=== PATIENT | female | born 1940 | race Caucasian/White ===

== ENCOUNTER 2017-11-22 10:10 | Emergency (ER) | payer MEDICARE, OTHER ==
[~2017-11-22] VITALS: Ht 152.4 cm; Wt 49.9 kg
[2017-11-22] MEDS ORDERED: ONDANSETRON HCL INJ 2 MG/ML VIAL IV STA ×2 (10:31→17:33)
[2017-11-22] MEDS ORDERED: SODIUM CHLORIDE 0.9% 1000ML 1,000 ML IV STA (10:31)
[2017-11-22] MEDS ORDERED: KETOROLAC TROMETHAMINE 30 MG/ML VIAL IV STA (10:37)
--- NOTE | 2017-11-22 11:31 | Diagnostic Imaging Report ---
PROCEDURE: A single AP view of the chest. COMPARISON: None. INDICATIONS: DIARRHEA FINDINGS: Lines/tubes: None. Lungs: Emphysema with basilar scarring Pleura: There is no pleural effusion or pneumothorax. Heart and mediastinum: Normal heart size. Surgical clips projected over the left upper mediastinum. Bones: No acute bony abnormality. 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 IMPRESSION: Emphysema. No evidence of infection or pulmonary edema. Dictated by: Tu Carrillo M.D. on 11/22/2017 at 11:39 Electronically approved by: Tu Carrillo M.D. on 11/22/2017 at 11:39
[2017-11-22 11:33] LABS: BILIRUBIN,URINE NEGATIVE (NEGATIVE); KETONES,URINE 1+ (NEGATIVE); LEUKOCYTE ESTERASE ,URINE NEGATIVE (NEGATIVE); NITRITE,URINE NEGATIVE (NEGATIVE); PROTEIN,URINE DIPSTICK NEGATIVE (NEGATIVE); URINE UROBILINOGEN 0.2 mg/dL (0.2 - 1)
[2017-11-22 12:18] LABS: AMORPHOUS SEDIMENT,URINE MODERATE (FEW); CLARITY,URINE HAZY (CLEAR); COLOR,URINE YELLOW (YELLOW); EPITHELIAL CELLS,URINE MANY /LPF; RBC,URINE 0-5 /HPF (0-5)
[2017-11-22 12:35] LABS: BASOPHILS # (AUTO) 0.1 (0.0-0.1); BASOPHILS % 0.9 % (0.0-1.0); EOSINOPHILS % 0.6 % (0.0-6.0); HEMATOCRIT 50.3 % (34.2-44.1); LYMPHOCYTES # (AUTO) 0.7 (1.0-3.2); LYMPHOCYTES % 12.9 % (18.0-39.1); MEAN CORPUSCULAR HEMOGLOBIN 31.4 pg (28-32); MEAN CORPUSCULAR HGB CONC 33.8 g/dL (31-35); MONOCYTES # (AUTO) 0.6 (0.2-0.8); MONOCYTES % 10.5 % (4.4-11.3); NEUTROPHILS # (AUTO) 4.1 (2.1-6.9); NEUTROPHILS % 74.5 % (38.7-80.0); PLATELET COUNT 247 x10e3/uL (140-360); RED BLOOD COUNT 5.41 x10e6/uL (3.6-5.1); RED CELL DISTRIBUTION WIDTH 13.2 % (11.7-14.4)
[2017-11-22 12:53] LABS: ALANINE AMINOTRANSFERASE 19 IU/L (0-55); ALBUMIN/GLOBULIN RATIO 1.1 (0.8-2.0); ALKALINE PHOSPHATASE 73 IU/L (40-150); ANION GAP 17.3 mmol/L (8-16); BLOOD UREA NITROGEN 12 mg/dL (7-26); BUN/CREATININE RATIO 15 (6-25); CALCIUM 9.6 mg/dL (8.4-10.2); CARBON DIOXIDE 21 mmol/L (22-29); CHLORIDE 105 mmol/L (98-107); CREATININE, SERUM 0.79 mg/dL (0.57-1.11); EST GLOMERULAR FILTRATION RATE > 60 ML/MIN (60-); GLUCOSE 89 mg/dL (74-118); POTASSIUM 4.3 mmol/L (3.5-5.1); SODIUM 139 mmol/L (136-145)
--- NOTE | 2017-11-22 16:04 | Diagnostic Imaging Report ---
PROCEDURE: CT ABDOMEN AND PELVIS WITHOUT CONTRAST TECHNIQUE: The abdomen and pelvis were scanned utilizing a multidetector helical scanner from the diaphragm to the lesser trochanter after the oral administration of Redicat. No IV contrast was administered. Coronal and sagittal multiplanar reformations were obtained. COMPARISON: None. INDICATIONS: ABDOMINAL PAIN, DIARRHEA FINDINGS: ABSENCE OF INTRAVENOUS CONTRAST DECREASES SENSITIVITY FOR DETECTION OF FOCAL LESIONS AND VASCULAR PATHOLOGY. LOWER THORAX: Subsegmental atelectasis and scarlike opacities in the lung bases. HEPATOBILIARY: No focal hepatic lesions. The common bile duct is mildly dilated, measuring up to 0.8 cm. SPLEEN: No splenomegaly. PANCREAS: No focal masses or ductal dilatation. ADRENALS: No adrenal nodules. KIDNEYS/URETERS: No hydronephrosis or stones. There is a 1.3 cm hyperdense exophytic lesion arising from the lower pole of the right kidney (series 2, image 30). PELVIC ORGANS/BLADDER: The bladder is unremarkable. There has been a hysterectomy. PERITONEUM / RETROPERITONEUM: No free air or fluid. LYMPH NODES: No lymphadenopathy. VESSELS: Moderate atherosclerotic calcifications of the aorta and its branches. GI TRACT: There postsurgical changes from right hemicolectomy with ileocolic anastomosis. There are numerous colonic diverticula without evidence of acute inflammation. No obstruction or abnormal bowel wall thickening. BONES AND SOFT TISSUES: Unremarkable. IMPRESSION: 1. Postsurgical changes from a right hemicolectomy with ileocolic anastomosis. 2. Sigmoid diverticulosis without acute diverticulitis. 3. Indeterminate 1.3 cm exophytic lesion arising from the right kidney. This may represent a complex cyst. Recommend nonemergent renal ultrasound for confirmation. 4. Otherwise no specific findings to account for the patient's symptoms. Dictated by: Tu Carrillo M.D. on 11/22/2017 at 16:12 Electronically approved by: Tu Carrillo M.D. on 11/22/2017 at 16:12
== END 2017-11-22 17:54 | disposition home or self-care (01) ==
LOC: ER 10:10
DX: R10.31 Right lower quadrant pain (principal); R10.32 Left lower quadrant pain; R10.11 Right upper quadrant pain; K57.30 Diverticulosis of large intestine without perforation or abscess without bleeding; Z88.1 Allergy status to other antibiotic agents; Z88.5 Allergy status to narcotic agent; Z91.041 Radiographic dye allergy status
CPT/HCPCS: 36415; 71010; 74176; 80053; 81001; 82270; 83518; 85025; 87045; 87070; 87086; 87400; 87493; 99284; J1885; J2405; J7030

== ENCOUNTER 2021-10-22 09:04 | Emergency (ER) | payer MEDICARE, OTHER ==
[~2021-10-22] VITALS: Ht 152.4 cm; Wt 50.8 kg
[2021-10-22 09:34] LABS: BASOPHILS % 0.6 % (0.0-1.0); EOSINOPHILS # (AUTO) 0.1 (0.0-0.4); EOSINOPHILS % 2.1 % (0.0-6.0); HEMATOCRIT 45.7 % (34.2-44.1); HEMOGLOBIN 14.9 g/dL (12.0-16.0); LYMPHOCYTES # (AUTO) 1.2 (1.0-3.2); LYMPHOCYTES % 17.5 % (18.0-39.1); MEAN CORPUSCULAR HGB CONC 32.6 g/dL (31-35); MEAN CORPUSCULAR VOLUME 92.1 fL (81-99); MONOCYTES # (AUTO) 0.6 (0.2-0.8); MONOCYTES % 8.4 % (4.4-11.3); NEUTROPHILS # (AUTO) 4.8 (2.1-6.9); NEUTROPHILS % 70.8 % (38.7-80.0); PLATELET COUNT 314 x10e3/uL (140-360); RED BLOOD COUNT 4.96 x10e6/uL (3.6-5.1)
[2021-10-22 10:03] LABS: ALBUMIN/GLOBULIN RATIO 1.4 (0.8-2.0); ANION GAP 16.1 mmol/L (8-16); CALCIUM 8.6 mg/dL (8.4-10.2); CREATININE, SERUM 0.75 mg/dL (0.57-1.11); POTASSIUM 4.1 mmol/L (3.5-5.1)
[2021-10-22 11:35] LABS: BACTERIA,URINE FEW /HPF; CLARITY,URINE CLEAR (CLEAR); COLOR,URINE YELLOW (YELLOW); EPITHELIAL CELLS,URINE MODERATE /LPF; KETONES,URINE NEGATIVE (NEGATIVE); LEUKOCYTE ESTERASE ,URINE NEGATIVE (NEGATIVE); NITRITE,URINE NEGATIVE (NEGATIVE); PROTEIN,URINE DIPSTICK NEGATIVE (NEGATIVE); RBC,URINE 0-5 /HPF (0-5); TRANSITIONAL EPI CELLS,URINE MODERATE; URINE UROBILINOGEN 0.2 mg/dL (0.2 - 1); WBC,URINE (MAN) 0-5 /HPF (0-5)
[2021-10-22 11:59] VITALS: BP 101/72
[2021-10-22] MEDS ORDERED: ONDANSETRON ODT4 MG PO (12:02)
== END 2021-10-22 12:03 | disposition home or self-care (01) ==
LOC: ER 09:14
DX: J06.9 Acute upper respiratory infection, unspecified (principal); Z20.822 Contact with and (suspected) exposure to COVID-19; J44.9 Chronic obstructive pulmonary disease, unspecified; I25.10 Atherosclerotic heart disease of native coronary artery without angina pectoris; E78.5 Hyperlipidemia, unspecified; M54.9 Dorsalgia, unspecified; G89.29 Other chronic pain; Z99.81 Dependence on supplemental oxygen; R94.31 Abnormal electrocardiogram [ECG] [EKG]
CPT/HCPCS: 36415; 71045; 80053; 81001; 83605; 84484; 85025; 85379; 87040; 93005; 99284; U0002

== ENCOUNTER 2022-10-14 08:03 | Observation (INO) | payer MEDICARE, OTHER ==
[2022-10-12 13:36] LABS: BASOPHILS # (AUTO) 0.1 (0.0-0.1); BASOPHILS % 0.7 % (0.0-1.0); EOSINOPHILS # (AUTO) 0.2 (0.0-0.4); EOSINOPHILS % 2.5 % (0.0-6.0); HEMATOCRIT 46.2 % (34.2-44.1); LYMPHOCYTES # (AUTO) 0.9 (1.0-3.2); LYMPHOCYTES % 12.2 % (18.0-39.1); MEAN CORPUSCULAR HEMOGLOBIN 29.9 pg (28-32); MEAN CORPUSCULAR HGB CONC 32.5 g/dL (31-35); MONOCYTES # (AUTO) 0.8 (0.2-0.8); MONOCYTES % 10.1 % (4.4-11.3); NEUTROPHILS # (AUTO) 5.5 (2.1-6.9); PLATELET COUNT 291 x10e3/uL (140-360); RED BLOOD COUNT 5.02 x10e6/uL (3.6-5.1); RED CELL DISTRIBUTION WIDTH 15.2 % (11.7-14.4)
[2022-10-12 13:49] LABS: INR 0.95; PARTIAL THROMBOPLASTIN TIME 31.5 seconds (23.8-35.5); PROTHROMBIN TIME 13.6 seconds (11.9-14.5)
[2022-10-12 13:53] LABS: ANION GAP 13.6 mmol/L (8-16); CALCIUM 9.4 mg/dL (8.4-10.2); CREATININE, SERUM 0.78 mg/dL (0.57-1.11); POTASSIUM 3.6 mmol/L (3.5-5.1)
[~2022-10-14] VITALS: Ht 152.4 cm; Wt 50.8 kg
[~2022-10-14 08:03] MED LIST: B1 VITAMIN; B12; CLARITIN10 MG PO; FLONASE ALLERG9.9 ML INH; LIDOCAINE HCL/EPINEPHRINE/PF 10 ML VIAL ONE; MELOXICAM7.5 MG PO; NEURONTIN400 MG PO; OMEPRAZOLE40 MG PO; ONDANSETRON ODT4 MG PO; THROMBIN FOR SOLN 5,000 UNIT VIAL ONE; TRILOGY; TYLENOL325 MG PO; VITAMIN C500 MG PO; VITAMIN D3 COM1 EACH; Vancomycin IV 1 GM VIAL ONE
[2022-10-14] MEDS ORDERED: Vancomycin IV 1 GM VIAL ONE (09:34)
[2022-10-14] MEDS ORDERED: SODIUM CHLORIDE 0.9% 250ML 250 ML ONE (09:34)
[2022-10-14] MEDS ORDERED: HYDROCODON-ACE1 EA12 PO (10:52)
[2022-10-14] MEDS ORDERED: ONDANSETRON HCL INJ 2MG/ML 2ML 2 MG/ML VIAL IV PRN (11:00)
[2022-10-14] MEDS ORDERED: CARISOPRODOL 350 MG TAB PO PRN (11:00)
[2022-10-14] MEDS ORDERED: HYDROMORPHONE 2MG/ML 2 MG/ML ML IV PRN (11:00)
[2022-10-14] MEDS ORDERED: PROMETHAZINE HCL (IM) 25 MG/ML VIAL IM PRN (11:00)
[2022-10-14] MEDS ORDERED: MORPHINE SULFATE 5 MG/ML VIAL IM PRN (11:00)
[2022-10-14] MEDS ORDERED: LORATADINE 10 MG TAB PO PRN (11:00)
[2022-10-14] MEDS ORDERED: ACETAMINOPHEN 325 MG TAB PO PRN (11:00)
[2022-10-14] MEDS ORDERED: MAGNESIUM/ALUMINUM/SIMETHICONE 30 ML UDC PO PRN (11:00)
[2022-10-14] MEDS ORDERED: ZOLPIDEM TARTRATE 5 MG TAB PO PRN (11:00)
[2022-10-14] MEDS ORDERED: METOCLOPRAMIDE HCL 10 MG/2ML VIAL ONE (12:40)
[2022-10-14] MEDS ORDERED: PROMETHAZINE HCL (IM) 25 MG/ML VIAL IM ONE (13:28)
[2022-10-14] MEDS ORDERED: MIDAZOLAM HCL 2 MG/2 ML VIAL ONE (13:36)
[2022-10-14] MEDS ORDERED: FENTANYL CITRATE/PF 100MCG/2 ML INJ ONE (13:36)
[2022-10-14] MEDS ORDERED: GLYCOPYRROLATE INJ 0.2 MG/ML VIAL ONE (13:50)
[2022-10-14] MEDS ORDERED: PHENYLEPHRINE HCL 1% 10 MG/ML VIAL ONE (13:50)
[2022-10-14] MEDS ORDERED: DEXAMETHASONE SOD PHOS INJ 4 MG/ML SDV ONE (13:50)
[2022-10-14] MEDS ORDERED: ONDANSETRON HCL INJ 2MG/ML 2ML 2 MG/ML VIAL ONE (13:50)
[2022-10-14] MEDS ORDERED: LIDOCAINE HCL 2% LOCAL INJ 5 ML SDV VIAL INJ ONE (13:50)
[2022-10-14] MEDS ORDERED: ROCURONIUM BROMIDE 10 MG/ML 5ML VIAL IV ONE (13:50)
[2022-10-14] MEDS ORDERED: PROPOFOL IV EMULSION 10 MG/ML 20 ML VIAL ONE (13:50)
[2022-10-14 13:56] VITALS: BP_SYST 123; BP_SYST 91; BP_DIAS 54; BP_DIAS 69
[2022-10-14] MEDS: HOME MEDICATION--PATIENTS OWN PO SCH ×2 (15:00→20:32)
[2022-10-14] MEDS: ONDANSETRON HCL 4 MG ORAL DISINTEGRATING TAB PO SCH ×3 (18:45→23:48)
[2022-10-14] MEDS: LACTATED RINGER'S 1,000 ML IV SCH ×2 (18:45→23:20)
[2022-10-14] MEDS: Vancomycin IV 1 GM in SODIUM CHLORIDE 0.9% 250ML 250 ML IV SCH (18:46)
[2022-10-14 20:00] VITALS: BP 94/55
[2022-10-14] MEDS: OXYCODONE/ACETAMINOPHEN 5-325 1 EACH TABLET PO PRN (20:27)
[2022-10-15] VITALS: BP 94/51
[2022-10-15 00:28] VITALS: BP 94/55
[2022-10-15 04:00] VITALS: BP 104/57
[2022-10-15] MEDS: OXYCODONE/ACETAMINOPHEN 5-325 1 EACH TABLET PO PRN ×2 (06:01→06:03)
[2022-10-15] MEDS: ONDANSETRON HCL 4 MG ORAL DISINTEGRATING TAB PO SCH (06:03)
[2022-10-15] MEDS: Vancomycin IV 1 GM in SODIUM CHLORIDE 0.9% 250ML 250 ML IV SCH (06:08)
[2022-10-15] MEDS ORDERED: OXYCODONE/ACETAMINOPHEN 5-325 1 EACH TABLET PO PRN (07:00)
[2022-10-15] MEDS: LACTATED RINGER'S 1,000 ML IV SCH (08:00)
[2022-10-15 08:07] VITALS: BP 105/55
[2022-10-15 08:39] VITALS: BP 105/55
[2022-10-15] MEDS ORDERED: NON-FORMULARY MEDICATION (Fluticasone Propionate* (Flonase Allergy Relief*) 1 EACH) INH SCH (09:00)
[2022-10-15] MEDS ORDERED: PANTOPRAZOLE SOD 40 MG TABEC PO SCH (09:00)
[2022-10-15] MEDS ORDERED: GABAPENTIN 300 MG CAP PO SCH (09:00)
[2022-10-15] MEDS ORDERED: FLUTICASONE PROPIONATE NASAL SPRAY NS SCH (09:00)
[2022-10-15] MEDS ORDERED: MELOXICAM 7.5 MG TAB PO SCH (09:00)
[2022-10-15] MEDS ORDERED: ASCORBIC ACID 500 MG TAB PO SCH (09:00)
== END 2022-10-15 09:33 | disposition home or self-care (01) ==
LOC: OR 08:03 → PACU V 12:45 → MED/SURG2 14:10
PROVIDERS: ADMIT Neurological Surgery; ATTEND Neurological Surgery
DX: M50.022 Cervical disc disorder at C5-C6 level with myelopathy (principal); Z01.818 Encounter for other preprocedural examination; E78.5 Hyperlipidemia, unspecified; J44.9 Chronic obstructive pulmonary disease, unspecified; Z20.822 Contact with and (suspected) exposure to COVID-19
CPT/HCPCS: 0223U; 20931; 22551; 22845; 36415; 76000; 80048; 85025; 85610; 85730; 86850; 86900; 88304; 88311; 93005; A4467; C1713 ×3; G0378 ×2; J1100; J2001; J2250; J2370; J2405 ×2; J2550; J2704; J2765; J3010; J3370 ×2; J7050 ×2; J7121; Q0162 ×2; S0164

== ENCOUNTER 2022-12-26 09:38 | Emergency (ER) | payer MEDICARE, OTHER ==
[~2022-12-26] VITALS: Ht 152.4 cm; Wt 50.8 kg
[~2022-12-26 09:38] MED LIST changes: +HYDROCODON-ACE1 EA12 PO; -LIDOCAINE HCL/EPINEPHRINE/PF 10 ML VIAL ONE; -THROMBIN FOR SOLN 5,000 UNIT VIAL ONE; -Vancomycin IV 1 GM VIAL ONE
[2022-12-26] MEDS ORDERED: LIDOCAINE 4% PATCH TP ONE (10:00)
[2022-12-26 10:22] LABS: CLARITY,URINE HAZY (CLEAR); COLOR,URINE YELLOW (YELLOW); LEUKOCYTE ESTERASE ,URINE NEGATIVE (NEGATIVE)
[2022-12-26 10:23] LABS: BACTERIA,URINE MODERATE /HPF; EPITHELIAL CELLS,URINE MODERATE /LPF; KETONES,URINE NEGATIVE (NEGATIVE); NITRITE,URINE NEGATIVE (NEGATIVE); PROTEIN,URINE DIPSTICK NEGATIVE (NEGATIVE); URINE UROBILINOGEN 0.2 mg/dL (0.2 - 1)
[2022-12-26] MEDS ORDERED: METHYLPREDNISOLONE SOD SUCC 125 MG/2ML VIAL IM ONE (10:30)
[2022-12-26] MEDS ORDERED: TRAMADOL HCL 50 MG TAB PO ONE (10:30)
[2022-12-26] MEDS ORDERED: ACETAMINOPHEN 325 MG TAB PO ONE (10:30)
[2022-12-26] MEDS ORDERED: MACROBID 100 M100 MG PO (11:31)
[2022-12-26] MEDS ORDERED: MEDROL4 M2 PO (11:31)
[2022-12-26 11:46] VITALS: BP 112/60
== END 2022-12-26 11:48 | disposition home or self-care (01) ==
LOC: ER 09:45
DX: M54.31 Sciatica, right side (principal); N39.0 Urinary tract infection, site not specified; E78.5 Hyperlipidemia, unspecified; J44.9 Chronic obstructive pulmonary disease, unspecified; I25.10 Atherosclerotic heart disease of native coronary artery without angina pectoris; M54.9 Dorsalgia, unspecified; G89.29 Other chronic pain
CPT/HCPCS: 73502; 81001; 87086; 87186; 99284; J2930

== ENCOUNTER 2023-04-23 09:48 | Inpatient (IN) | payer MEDICARE, OTHER ==
[~2023-04-23] VITALS: Ht 152.4 cm; Wt 45.4 kg
[~2023-04-23 09:48] MED LIST changes: +MACROBID 100 M100 MG PO; +MEDROL4 M2 PO
[2023-04-23] MEDS ORDERED: SODIUM CHLORIDE 0.9% 1000ML 1,000 ML IV STA (10:14)
[2023-04-23 13:17] LABS: CLARITY,URINE CLEAR (CLEAR); COLOR,URINE YELLOW (YELLOW); LEUKOCYTE ESTERASE ,URINE NEGATIVE (NEGATIVE)
[2023-04-23 13:18] LABS: KETONES,URINE >=160 (NEGATIVE); NITRITE,URINE NEGATIVE (NEGATIVE); PROTEIN,URINE DIPSTICK NEGATIVE (NEGATIVE); URINE UROBILINOGEN 0.2 mg/dL (0.2 - 1)
[2023-04-23 13:31] LABS: BACTERIA,URINE FEW /HPF; WBC,URINE (MAN) 0-5 /HPF (0-5)
[2023-04-23 13:32] LABS: EPITHELIAL CELLS,URINE FEW /LPF
[2023-04-23 14:23] LABS: BASOPHILS % 0.6 % (0.0-1.0); EOSINOPHILS % 0.3 % (0.0-6.0); HEMATOCRIT 41.8 % (34.2-44.1); HEMOGLOBIN 13.8 g/dL (12.0-16.0); LYMPHOCYTES # (AUTO) 0.9 (1.0-3.2); LYMPHOCYTES % 13.7 % (18.0-39.1); MEAN CORPUSCULAR HEMOGLOBIN 29.7 pg (28-32); MEAN CORPUSCULAR VOLUME 90.1 fL (81-99); MONOCYTES # (AUTO) 0.4 (0.2-0.8); MONOCYTES % 6.1 % (4.4-11.3); NEUTROPHILS # (AUTO) 5.3 (2.1-6.9); NEUTROPHILS % 78.9 % (38.7-80.0); PLATELET COUNT 261 x10e3/uL (140-360); RED BLOOD COUNT 4.64 x10e6/uL (3.6-5.1); RED CELL DISTRIBUTION WIDTH 14.6 % (11.7-14.4)
[2023-04-23 14:34] LABS: INR 1.1; PARTIAL THROMBOPLASTIN TIME 29.3 seconds (23.8-35.5); PROTHROMBIN TIME 14.7 seconds (11.9-14.5)
[2023-04-23 14:45] LABS: ALANINE AMINOTRANSFERASE 17 IU/L (0-55); ALBUMIN 3.9 g/dL (3.5-5.0); ALBUMIN/GLOBULIN RATIO 1.4 (0.8-2.0); ALKALINE PHOSPHATASE 78 IU/L (40-150); ANION GAP 20.2 mmol/L (8-16); BLOOD UREA NITROGEN 21 mg/dL (7-26); BUN/CREATININE RATIO 26 (6-25); CARBON DIOXIDE 16 mmol/L (22-29); CHLORIDE 107 mmol/L (98-107); CREATININE, SERUM 0.82 mg/dL (0.57-1.11); LIPASE 8 U/L (8-78); MAGNESIUM 1.9 MG/DL (1.3-2.1); POTASSIUM 4.2 mmol/L (3.5-5.1); SODIUM 139 mmol/L (136-145)
[2023-04-23 14:46] LABS: GLUCOSE 48 mg/dL (74-118)
[2023-04-23] MEDS ORDERED: DEXTROSE 50% SYRINGE 50 ML IV ONE (14:50)
[2023-04-23] MEDS ORDERED: DEXTROSE 50% SYRINGE 50 ML IV STA (14:52)
[2023-04-23] MEDS ORDERED: ALBUTEROL/IPRATROPIUM 3 ML NEB NEB PRN (15:30)
[2023-04-23] MEDS ORDERED: DEXTROSE 50% SYRINGE 50 ML IV PRN (15:30)
[2023-04-23] MEDS ORDERED: ONDANSETRON HCL INJ 2MG/ML 2ML 2 MG/ML VIAL IV PRN (15:30)
[2023-04-23] MEDS: DEXTROSE 5%/0.9% SOD CHL 1,000 ML IV SCH (16:27)
[2023-04-23 16:31] VITALS: PULSE 71; RESP 20; O2SAT 95
[2023-04-23 20:00] VITALS: BP 128/67; PULSE 89; RESP 21; TEMP 97.7; O2SAT 98
[2023-04-23] MEDS: ACETAMINOPHEN 325 MG TAB PO PRN (22:32)
[2023-04-23 23:45] VITALS: PULSE 80; RESP 18; O2SAT 97
[2023-04-24] VITALS (10 sets, daily range): BP systolic 109–126; BP diastolic 55–83; PULSE 64–80; RESP 16–20; TEMP 97.2–97.9; O2SAT 94–99
[2023-04-24] MEDS: DEXTROSE 5%/0.9% SOD CHL 1,000 ML IV SCH (05:17)
[2023-04-24] MEDS ORDERED: CYANOCOBALAMIN INJ 1,000 MCG/ML VIAL IM ONE (05:30)
[2023-04-24 06:37] LABS: BASOPHILS # (AUTO) 0.1 (0.0-0.1); BASOPHILS % 1.1 % (0.0-1.0); EOSINOPHILS # (AUTO) 0.1 (0.0-0.4); EOSINOPHILS % 2.9 % (0.0-6.0); HEMATOCRIT 41.3 % (34.2-44.1); HEMOGLOBIN 13.7 g/dL (12.0-16.0); LYMPHOCYTES # (AUTO) 0.8 (1.0-3.2); LYMPHOCYTES % 18.5 % (18.0-39.1); MEAN CORPUSCULAR HEMOGLOBIN 29.9 pg (28-32); MEAN CORPUSCULAR HGB CONC 33.2 g/dL (31-35); MEAN CORPUSCULAR VOLUME 90.2 fL (81-99); MONOCYTES # (AUTO) 0.6 (0.2-0.8); MONOCYTES % 12.5 % (4.4-11.3); NEUTROPHILS # (AUTO) 2.9 (2.1-6.9); NEUTROPHILS % 64.6 % (38.7-80.0); PLATELET COUNT 237 x10e3/uL (140-360); RED BLOOD COUNT 4.58 x10e6/uL (3.6-5.1); RED CELL DISTRIBUTION WIDTH 14.4 % (11.7-14.4)
[2023-04-24 07:20] LABS: ALBUMIN 3.4 g/dL (3.5-5.0); ALBUMIN/GLOBULIN RATIO 1.4 (0.8-2.0); ANION GAP 11.8 mmol/L (8-16); CALCIUM 8.8 mg/dL (8.4-10.2); CREATININE, SERUM 0.76 mg/dL (0.57-1.11); POTASSIUM 3.8 mmol/L (3.5-5.1)
[2023-04-24] MEDS: MELOXICAM 7.5 MG TAB PO SCH (07:47)
[2023-04-24] MEDS: PANTOPRAZOLE SOD 40 MG TABEC PO SCH (07:47)
[2023-04-24] MEDS: ACETAMINOPHEN 325 MG TAB PO PRN (08:10)
[2023-04-25 01:12] VITALS: BP 131/61; PULSE 79; RESP 20; TEMP 97; O2SAT 98
[2023-04-25 04:42] VITALS: BP 120/68; PULSE 84; RESP 18; TEMP 97.4; O2SAT 97
[2023-04-25 06:46] VITALS: PULSE 71; RESP 20; O2SAT 98
[2023-04-25 07:30] VITALS: BP 128/71; PULSE 72; RESP 20; TEMP 97.9; O2SAT 98
[2023-04-25 07:36] VITALS: BP 128/71; PULSE 72; RESP 18; TEMP 97.9; O2SAT 100
[2023-04-25] MEDS: PANTOPRAZOLE SOD 40 MG TABEC PO SCH (09:13)
[2023-04-25] MEDS: MELOXICAM 7.5 MG TAB PO SCH (09:13)
[2023-04-25] MEDS: ACETAMINOPHEN 325 MG TAB PO PRN (09:18)
[2023-04-25 11:23] VITALS: BP 121/58; PULSE 73; RESP 16; TEMP 97.9; O2SAT 100
[2023-04-25] MEDS ORDERED: ONDANSETRON HCL 4 MG ORAL DISINTEGRATING TAB PO PRN (15:15)
[2023-04-26] MEDS ORDERED: BUDESONIDE/FORMOTEROL 160/4.5MCG INHALER INH SCH (10:00)
== END 2023-04-25 15:07 | disposition home or self-care (01) | DRG 641 ==
LOC: ER 10:11 → ERHOLD 15:36 → MED/SURG3 20:01 → OBSVTOIN 04-25 10:57
PROVIDERS: ADMIT Family Medicine; ATTEND Family Medicine
DX: E16.2 Hypoglycemia, unspecified (principal); R62.7 Adult failure to thrive; F41.8 Other specified anxiety disorders; J43.9 Emphysema, unspecified; G62.9 Polyneuropathy, unspecified; K21.9 Gastro-esophageal reflux disease without esophagitis; R53.1 Weakness; F32.A Depression, unspecified; M50.10 Cervical disc disorder with radiculopathy, unspecified cervical region; K57.90 Diverticulosis of intestine, part unspecified, without perforation or abscess without bleeding; E78.5 Hyperlipidemia, unspecified; I25.10 Atherosclerotic heart disease of native coronary artery without angina pectoris; Z99.81 Dependence on supplemental oxygen; Z87.891 Personal history of nicotine dependence; Z90.710 Acquired absence of both cervix and uterus; Z79.899 Other long term (current) drug therapy; Z88.1 Allergy status to other antibiotic agents; Z91.041 Radiographic dye allergy status; Z80.0 Family history of malignant neoplasm of digestive organs; Z63.79 Other stressful life events affecting family and household; Z90.49 Acquired absence of other specified parts of digestive tract
CPT/HCPCS: 0223U; 36415; 71045; 74176; 80053; 81001; 82948; 83690; 83735; 84484; 85025; 85610; 85730; 87086; 93925; 94799; 99285; G0378; J3420; J7030; J7042; J7799

== ENCOUNTER 2024-08-19 10:52 | Emergency (ER) | payer MEDICARE, OTHER ==
[~2024-08-19] VITALS: Ht 154.9 cm; Wt 45.4 kg
[2024-08-19 11:12] VITALS: PULSE 78; RESP 19; TEMP 97.5; O2SAT 98
[2024-08-19] MEDS ORDERED: PREDNISONE20 MG PO (13:15)
== END 2024-08-19 14:14 | disposition home or self-care (01) ==
LOC: ER 11:04
DX: R05.9 Cough, unspecified (principal); J06.9 Acute upper respiratory infection, unspecified; E11.9 Type 2 diabetes mellitus without complications; J44.9 Chronic obstructive pulmonary disease, unspecified; I25.10 Atherosclerotic heart disease of native coronary artery without angina pectoris; E78.5 Hyperlipidemia, unspecified; K21.9 Gastro-esophageal reflux disease without esophagitis; F41.9 Anxiety disorder, unspecified; F32.A Depression, unspecified; M54.9 Dorsalgia, unspecified; G89.29 Other chronic pain; Z87.19 Personal history of other diseases of the digestive system
CPT/HCPCS: 71045; 99284